=== PATIENT | male | born 1965 | race Caucasian/White ===

== ENCOUNTER 2016-11-10 11:00 | Emergency (ER) | payer MEDICARE, OTHER ==
[~2016-11-10] VITALS: Ht 172.7 cm; Wt 78.0 kg
[~2016-11-10 11:00] MED LIST: ASEN5TAB6 SL
[2016-11-10 11:42] LABS: BASOPHILS % (AUTO) 0.4 % (0.0-2.0); EOSINOPHILS % (AUTO) 0.4 % (1.0-6.0); HEMATOCRIT 49.6 % (41-53); HEMOGLOBIN 16.3 g/dL (13.5-17.5); LYMPHOCYTES # (AUTO) 1.9 K/uL (1.0-4.8); LYMPHOCYTES % (AUTO) 18.3 % (22.0-44.0); MEAN CORPUSCULAR HEMOGLOBIN 31.3 pg (26.0-34.0); MEAN CORPUSCULAR HGB CONC 32.8 G/dL (31.0-37.0); MEAN CORPUSCULAR VOLUME 95 fL (80-100); MONOCYTES % (AUTO) 9.1 % (2.0-9.0); NEUTROPHILS # (AUTO) 7.6 K/uL (1.8-7.7); NEUTROPHILS % (AUTO) 71.8 % (40.0-70.0); PLATELET COUNT (AUTO) 286 K/uL (150-450); RED BLOOD CELL COUNT(AUTO) 5.21 MIL/uL (4.50-5.90); RED CELL DISTRIBUTION WIDTH 14.1 % (11.5-14.5); WHITE BLOOD COUNT (AUTO) 10.6 K/uL (4.5-11.0)
[2016-11-10 11:56] LABS: ANION GAP 13 mmol/L (8-16); CALCIUM, TOTAL 9.5 mg/dL (8.8-10.5); CARBON DIOXIDE 27 mmol/L (22-29); CHLORIDE 103 mmol/L (98-107); CREATININE 0.86 mg/dL (0.60-1.30); GLOMERULAR FILTR. RATE CALC > 60 mL/min (>60); POTASSIUM 3.5 mmol/L (3.5-5.1); SODIUM SERUM 143 mmol/L (136-145); UREA NITROGEN, BLOOD 24 mg/dL (7-18)
[2016-11-10 12:02] LABS: ALANINE AMINOTRANSFERASE 23 U/L (12-78); ALBUMIN 4.5 g/dL (3.4-5.0); ASPARTATE AMINOTRANSFERASE 38 U/L (15-37); BILIRUBIN,TOTAL 1.3 mg/dL (0.1-1.0); TOTAL PROTEIN, SERUM 8.3 g/dL (6.4-8.2)
[2016-11-10] MEDS ORDERED: HALOPERIDOL 5 MG TABLET PO ONE (14:15)
[2016-11-10 14:52] VITALS: BP 122/76
== END 2016-11-10 15:14 | disposition home or self-care (01) ==
LOC: EEVIPCON 11:00 → EMS 11:03
DX: F20.9 Schizophrenia, unspecified (principal); Z88.8 Allergy status to other drugs, medicaments and biological substances
CPT/HCPCS: 36415; 80053; 80307; 85025; 99285; G0480

== ENCOUNTER 2016-12-24 20:45 | Inpatient (IN) | payer OTHER ==
[~2016-12-24] VITALS: Ht 177.8 cm; Wt 75.3 kg
[~2016-12-24 20:45] MED LIST changes: +HALO5 PO
[2016-12-24] MEDS ORDERED: HALOPERIDOL 5 MG TABLET PO PRN (22:15)
[2016-12-24] MEDS ORDERED: DOCUSATE SODIUM 100 MG CAPSULE PO PRN (22:15)
[2016-12-24] MEDS ORDERED: MAGNESIUM HYDROXIDE SUSPENSION 30 ML UDCUP PO PRN (22:15)
[2016-12-24] MEDS: DEXTROSE 5%-0.45% SODIUM CHL 1,000 ML IV SCH (22:42)
[2016-12-24 22:48] VITALS: BP 127/84
[2016-12-24] MEDS: HALOPERIDOL 5 MG TABLET PO SCH (23:00)
[2016-12-25 02:15] VITALS: BP 126/78
[2016-12-25 06:14] VITALS: BP 133/82
[2016-12-25 08:00] VITALS: BP 115/76
[2016-12-25] MEDS: HALOPERIDOL 5 MG TABLET PO SCH ×2 (09:00→21:00)
[2016-12-25 11:00] VITALS: BP 119/73
[2016-12-25] MEDS ORDERED: HYDROCODONE/ACETAMINOPHEN 5-325 MG TABLET PO PRN (15:00)
[2016-12-25] MEDS ORDERED: ZOLPIDEM TARTRATE 5 MG TABLET PO PRN (15:00)
[2016-12-25] MEDS ORDERED: ACETAMINOPHEN 325 MG TABLET PO PRN (15:00)
[2016-12-25] MEDS ORDERED: BISACODYL 10 MG RECTAL RECTAL SUPPOSITORY PR PRN (15:00)
[2016-12-25] MEDS ORDERED: MORPHINE SULFATE 2 MG/ML SYRINGE IVP PRN (15:00)
[2016-12-25] MEDS ORDERED: MAGNESIUM HYDROXIDE SUSPENSION 30 ML UDCUP PO PRN (15:00)
[2016-12-25 16:00] VITALS: BP 99/58
[2016-12-25] MEDS: HEPARIN SODIUM,PORCINE 5,000 UNITS/ML VIAL SQ SCH ×2 (16:00→23:50)
[2016-12-25] MEDS: DOCUSATE SODIUM 100 MG CAPSULE PO SCH (19:46)
[2016-12-25 20:40] VITALS: BP 123/69
[2016-12-25] MEDS: DEXTROSE 5%-0.45% SODIUM CHL 1,000 ML IV SCH (23:24)
[2016-12-26] VITALS: BP 101/70
[2016-12-26 04:37] VITALS: BP 129/71
[2016-12-26 06:47] LABS: ANION GAP 1 mmol/L (8-16); CALCIUM, TOTAL 8.8 mg/dL (8.8-10.5); CARBON DIOXIDE 28 mmol/L (22-29); CHLORIDE 109 mmol/L (98-107); CREATININE 0.85 mg/dL (0.60-1.30); GLOMERULAR FILTR. RATE CALC > 60 mL/min (>60); POTASSIUM 3.8 mmol/L (3.5-5.1); SODIUM SERUM 138 mmol/L (136-145); UREA NITROGEN, BLOOD 12 mg/dL (7-18)
[2016-12-26 08:00] VITALS: BP 107/70
[2016-12-26] MEDS: HEPARIN SODIUM,PORCINE 5,000 UNITS/ML VIAL SQ SCH ×2 (08:24→15:24)
[2016-12-26] MEDS: HALOPERIDOL 5 MG TABLET PO SCH ×2 (08:25→08:36)
[2016-12-26] MEDS: DOCUSATE SODIUM 100 MG CAPSULE PO SCH ×2 (08:25→08:36)
[2016-12-26] MEDS ORDERED: PANTOPRAZOLE SODIUM 40 MG DR TABLET PO SCH (09:00)
[2016-12-26 13:23] VITALS: BP 118/72
[2016-12-26] MEDS: DEXTROSE 5%-0.45% SODIUM CHL 1,000 ML IV SCH (14:02)
[2016-12-26 16:00] VITALS: BP 115/70
== END 2016-12-26 18:36 | DRG 682 ==
LOC: 4E 20:45
PROVIDERS: ADMIT Internal Medicine; ATTEND Internal Medicine
DX: N17.9 Acute kidney failure, unspecified (principal); G93.41 Metabolic encephalopathy; E87.0 Hyperosmolality and hypernatremia; E86.0 Dehydration; H40.9 Unspecified glaucoma; N18.9 Chronic kidney disease, unspecified; Z88.1 Allergy status to other antibiotic agents; Z88.8 Allergy status to other drugs, medicaments and biological substances; Z80.42 Family history of malignant neoplasm of prostate
CPT/HCPCS: 97162; 97530; J1644

== ENCOUNTER 2016-12-26 18:30 | Inpatient (IN) | payer MEDICARE, MEDICAID ==
[~2016-12-26] VITALS: Ht 177.8 cm; Wt 83.6 kg
[~2016-12-26 18:30] MED LIST changes: +ACET-784 PO; +FOLI1 PO; +LOPE2 PO; +LORA2TAB2 PO; +MAG-55 PO; +MOM30 PO; +MULT-29 GT; +OLAN5Z PO; +PROM25 PO; +THIA100 PO; +VIST50 PO; +ZOLP10 PO
[2016-12-26] MEDS ORDERED: HALOPERIDOL 5 MG TABLET PO PRN (19:15)
[2016-12-26] MEDS ORDERED: LORazepam 2 MG TABLET PO PRN (19:15)
[2016-12-26] MEDS: HALOPERIDOL 5 MG TABLET PO SCH (19:22)
[2016-12-26 20:17] VITALS: BP 111/79
[2016-12-27 05:10] VITALS: BP 123/75
[2016-12-27 08:05] VITALS: BP 118/67
[2016-12-27] MEDS: PANTOPRAZOLE SODIUM 40 MG DR TABLET PO SCH (09:00)
[2016-12-27] MEDS: DOCUSATE SODIUM 100 MG CAPSULE PO SCH ×2 (09:00→16:07)
[2016-12-27] MEDS: HALOPERIDOL 5 MG TABLET PO SCH ×2 (09:00→16:07)
[2016-12-27 16:10] VITALS: BP 132/89
[2016-12-28] MEDS: ZOLPIDEM TARTRATE 10 MG TABLET PO PRN ×2 (00:24→20:50)
[2016-12-28 08:02] VITALS: BP 111/72
[2016-12-28] MEDS: DOCUSATE SODIUM 100 MG CAPSULE PO SCH ×2 (08:40→16:21)
[2016-12-28] MEDS: PANTOPRAZOLE SODIUM 40 MG DR TABLET PO SCH (08:40)
[2016-12-28] MEDS: HALOPERIDOL 5 MG TABLET PO SCH ×2 (08:40→16:21)
[2016-12-28 16:10] VITALS: BP 130/80
[2016-12-29 03:05] VITALS: BP 120/71
[2016-12-29 08:15] VITALS: BP 114/70
[2016-12-29] MEDS: PANTOPRAZOLE SODIUM 40 MG DR TABLET PO SCH (09:00)
[2016-12-29] MEDS: HALOPERIDOL 5 MG TABLET PO SCH ×3 (09:00→17:10)
[2016-12-29] MEDS: DOCUSATE SODIUM 100 MG CAPSULE PO SCH ×2 (09:00→17:00)
[2016-12-29] MEDS: IBUPROFEN 600 MG TABLET PO PRN (17:11)
[2016-12-29] MEDS: ZOLPIDEM TARTRATE 10 MG TABLET PO PRN (21:51)
[2016-12-30 00:22] VITALS: BP 101/67
[2016-12-30] MEDS: HALOPERIDOL 5 MG TABLET PO SCH ×2 (09:00→16:05)
[2016-12-30] MEDS: DOCUSATE SODIUM 100 MG CAPSULE PO SCH ×2 (09:00→16:05)
[2016-12-30] MEDS: PANTOPRAZOLE SODIUM 40 MG DR TABLET PO SCH (09:00)
[2016-12-30 10:11] VITALS: BP 121/80
[2016-12-30] MEDS: ZOLPIDEM TARTRATE 10 MG TABLET PO PRN (20:32)
[2016-12-31 01:45] VITALS: BP 113/72
[2016-12-31] MEDS: ZIPRASIDONE HCL 20 MG CAPSULE PO SCH ×2 (06:53→16:32)
[2016-12-31] MEDS: DOCUSATE SODIUM 100 MG CAPSULE PO SCH ×2 (09:00→16:34)
[2016-12-31] MEDS: PANTOPRAZOLE SODIUM 40 MG DR TABLET PO SCH (09:00)
[2016-12-31 09:17] VITALS: BP 138/88
[2016-12-31 16:34] VITALS: BP 113/69
[2017-01-01] MEDS: PANTOPRAZOLE SODIUM 40 MG DR TABLET PO SCH (08:12)
[2017-01-01] MEDS: DOCUSATE SODIUM 100 MG CAPSULE PO SCH ×2 (08:12→17:08)
[2017-01-01] MEDS: ZIPRASIDONE HCL 40 MG CAPSULE PO SCH ×2 (08:12→18:30)
[2017-01-01 08:30] VITALS: BP 119/74
[2017-01-01 18:32] VITALS: BP 110/70
[2017-01-01] MEDS: ZOLPIDEM TARTRATE 10 MG TABLET PO PRN (21:30)
[2017-01-02 07:04] LABS: ANION GAP 8 mmol/L (8-16); CALCIUM, TOTAL 8.9 mg/dL (8.8-10.5); CARBON DIOXIDE 29 mmol/L (22-29); CHLORIDE 105 mmol/L (98-107); CREATININE 0.84 mg/dL (0.60-1.30); GLOMERULAR FILTR. RATE CALC > 60 mL/min (>60); POTASSIUM 4.3 mmol/L (3.5-5.1); SODIUM SERUM 142 mmol/L (136-145); UREA NITROGEN, BLOOD 16 mg/dL (7-18)
[2017-01-02] MEDS: ZIPRASIDONE HCL 40 MG CAPSULE PO SCH ×2 (07:15→17:04)
[2017-01-02 08:00] VITALS: BP 146/86
[2017-01-02] MEDS: DOCUSATE SODIUM 100 MG CAPSULE PO SCH ×2 (09:00→17:00)
[2017-01-02] MEDS: PANTOPRAZOLE SODIUM 40 MG DR TABLET PO SCH (09:00)
[2017-01-02 19:34] VITALS: BP 121/76
[2017-01-03 03:58] VITALS: BP 119/82
[2017-01-03 08:02] VITALS: BP 124/87
[2017-01-03] MEDS: ZIPRASIDONE HCL 40 MG CAPSULE PO SCH ×2 (08:20→17:30)
[2017-01-03] MEDS: DOCUSATE SODIUM 100 MG CAPSULE PO SCH ×2 (08:20→17:00)
[2017-01-03] MEDS: PANTOPRAZOLE SODIUM 40 MG DR TABLET PO SCH (08:20)
[2017-01-03 16:44] VITALS: BP 121/87
[2017-01-03] MEDS: ZOLPIDEM TARTRATE 10 MG TABLET PO PRN (22:49)
[2017-01-04 01:56] VITALS: BP 136/65
[2017-01-04] MEDS: ZIPRASIDONE HCL 40 MG CAPSULE PO SCH ×2 (07:08→16:47)
[2017-01-04] MEDS: PANTOPRAZOLE SODIUM 40 MG DR TABLET PO SCH (08:04)
[2017-01-04] MEDS: DOCUSATE SODIUM 100 MG CAPSULE PO SCH ×2 (08:04→16:47)
[2017-01-04 08:16] VITALS: BP 118/79
[2017-01-04 16:15] VITALS: BP 126/73
[2017-01-05] MEDS: ZIPRASIDONE HCL 40 MG CAPSULE PO SCH ×2 (07:58→16:38)
[2017-01-05] MEDS: PANTOPRAZOLE SODIUM 40 MG DR TABLET PO SCH (07:59)
[2017-01-05] MEDS: DOCUSATE SODIUM 100 MG CAPSULE PO SCH ×2 (07:59→16:37)
[2017-01-05 08:05] VITALS: BP 140/82
[2017-01-05] MEDS ORDERED: ZIPR40CA2 PO (09:51)
[2017-01-05] MEDS ORDERED: PANT40TA25 PO (09:51)
[2017-01-05] MEDS ORDERED: DSS100 PO (09:51)
[2017-01-05 19:01] VITALS: BP 121/64
[2017-01-05] MEDS: ZOLPIDEM TARTRATE 10 MG TABLET PO PRN (23:07)
[2017-01-06] MEDS: ZIPRASIDONE HCL 40 MG CAPSULE PO SCH ×2 (07:16→17:01)
[2017-01-06 08:30] VITALS: BP 134/78
[2017-01-06] MEDS: DOCUSATE SODIUM 100 MG CAPSULE PO SCH ×2 (09:00→17:00)
[2017-01-06] MEDS: PANTOPRAZOLE SODIUM 40 MG DR TABLET PO SCH (09:00)
[2017-01-06 16:34] VITALS: BP 108/79
[2017-01-06] MEDS: ZOLPIDEM TARTRATE 10 MG TABLET PO PRN (22:08)
[2017-01-06] MEDS: HYDROCORTISONE 1% 30 GM OINTMENT TP PRN (22:10)
[2017-01-07 05:08] VITALS: BP 126/86
[2017-01-07] MEDS: HYDROCORTISONE 1% 30 GM OINTMENT TP PRN (05:23)
[2017-01-07] MEDS: ZIPRASIDONE HCL 40 MG CAPSULE PO SCH ×2 (07:26→17:30)
[2017-01-07] MEDS: DOCUSATE SODIUM 100 MG CAPSULE PO SCH ×2 (08:31→17:00)
[2017-01-07] MEDS: PANTOPRAZOLE SODIUM 40 MG DR TABLET PO SCH (08:31)
[2017-01-07 11:03] VITALS: BP 122/79
[2017-01-07 16:22] VITALS: BP 109/80
[2017-01-08] MEDS: ZOLPIDEM TARTRATE 10 MG TABLET PO PRN (01:07)
[2017-01-08] MEDS: PANTOPRAZOLE SODIUM 40 MG DR TABLET PO SCH (08:39)
[2017-01-08] MEDS: DOCUSATE SODIUM 100 MG CAPSULE PO SCH ×2 (08:39→17:00)
[2017-01-08 10:15] VITALS: BP 121/78
[2017-01-08 17:16] VITALS: BP 128/88
[2017-01-08] MEDS: IBUPROFEN 600 MG TABLET PO PRN (19:34)
[2017-01-08] MEDS: ZIPRASIDONE HCL 80 MG CAPSULE PO SCH (20:39)
[2017-01-09 08:58] VITALS: BP 115/84
[2017-01-09] MEDS: PANTOPRAZOLE SODIUM 40 MG DR TABLET PO SCH (09:00)
[2017-01-09] MEDS: DOCUSATE SODIUM 100 MG CAPSULE PO SCH ×2 (09:00→16:58)
[2017-01-09 16:54] VITALS: BP 132/81
[2017-01-09] MEDS: ZIPRASIDONE HCL 80 MG CAPSULE PO SCH ×2 (17:52→20:09)
[2017-01-10 05:00] VITALS: BP 121/82
[2017-01-10] MEDS: PANTOPRAZOLE SODIUM 40 MG DR TABLET PO SCH (09:00)
[2017-01-10] MEDS: DOCUSATE SODIUM 100 MG CAPSULE PO SCH ×2 (09:00→17:00)
[2017-01-10 09:29] VITALS: BP 122/84
[2017-01-10 17:00] VITALS: BP 127/70
[2017-01-10] MEDS: ZIPRASIDONE HCL 80 MG CAPSULE PO SCH (20:15)
[2017-01-11] MEDS: DOCUSATE SODIUM 100 MG CAPSULE PO SCH ×2 (08:31→16:19)
[2017-01-11] MEDS: PANTOPRAZOLE SODIUM 40 MG DR TABLET PO SCH (08:31)
[2017-01-11 09:09] VITALS: BP 113/77
[2017-01-11] MEDS: ZIPRASIDONE HCL 80 MG CAPSULE PO SCH ×2 (16:19→19:55)
[2017-01-11 17:00] VITALS: BP 123/71
[2017-01-11 20:20] VITALS: BP 108/83
[2017-01-11] MEDS: IBUPROFEN 600 MG TABLET PO PRN (20:20)
[2017-01-12] MEDS: DOCUSATE SODIUM 100 MG CAPSULE PO SCH (08:55)
[2017-01-12] MEDS: PANTOPRAZOLE SODIUM 40 MG DR TABLET PO SCH (08:56)
== END 2017-01-12 14:20 | disposition home or self-care (01) | DRG 885 ==
LOC: 3EX 18:30
PROVIDERS: ADMIT Psychiatry & Neurology Psychiatry; ATTEND Psychiatry & Neurology Psychiatry
DX: F20.0 Paranoid schizophrenia (principal); E87.1 Hypo-osmolality and hyponatremia; G35 Multiple sclerosis; Z88.8 Allergy status to other drugs, medicaments and biological substances; E16.2 Hypoglycemia, unspecified

== ENCOUNTER 2017-04-09 10:06 | Inpatient (IN) | payer MEDICARE, MEDICAID ==
[~2017-04-09] VITALS: Ht 175.3 cm; Wt 77.6 kg
[~2017-04-09 10:06] MED LIST changes: -ACET-784 PO; -ASEN5TAB6 SL; +DSS100 PO; -FOLI1 PO; -HALO5 PO; -LOPE2 PO; -LORA2TAB2 PO; -MAG-55 PO; -MOM30 PO; -MULT-29 GT; -OLAN5Z PO; +PANT40TA25 PO; -PROM25 PO; -THIA100 PO; -VIST50 PO; +ZIPR40CA2 PO; -ZOLP10 PO
[2017-04-09] MEDS ORDERED: KETO120S2 TP (10:17)
[2017-04-09] MEDS ORDERED: XALA2.5OS OU (10:17)
[2017-04-09 11:20] LABS: BASOPHILS % (AUTO) 0.2 % (0.0-2.0); EOSINOPHILS % (AUTO) 0.1 % (1.0-6.0); HEMATOCRIT 42.6 % (41-53); HEMOGLOBIN 14.5 g/dL (13.5-17.5); LYMPHOCYTES # (AUTO) 1.1 K/uL (1.0-4.8); LYMPHOCYTES % (AUTO) 11.8 % (22.0-44.0); MEAN CORPUSCULAR HEMOGLOBIN 32.6 pg (26.0-34.0); MEAN CORPUSCULAR HGB CONC 34.1 G/dL (31.0-37.0); MEAN CORPUSCULAR VOLUME 96 fL (80-100); MONOCYTES # (AUTO) 0.5 K/uL (0.1-1.0); MONOCYTES % (AUTO) 4.9 % (2.0-9.0); PLATELET COUNT (AUTO) 258 K/uL (150-450); RED BLOOD CELL COUNT(AUTO) 4.46 MIL/uL (4.50-5.90); RED CELL DISTRIBUTION WIDTH 13.3 % (11.5-14.5); WHITE BLOOD COUNT (AUTO) 9.6 K/uL (4.5-11.0)
[2017-04-09 11:37] LABS: ANION GAP 5 mmol/L (8-16); CALCIUM, TOTAL 8.7 mg/dL (8.8-10.5); CARBON DIOXIDE 29 mmol/L (22-29); CHLORIDE 105 mmol/L (98-107); CREATININE 0.87 mg/dL (0.60-1.30); GLOMERULAR FILTR. RATE CALC > 60 mL/min (>60); SODIUM SERUM 139 mmol/L (136-145); UREA NITROGEN, BLOOD 13 mg/dL (7-18)
[2017-04-09 11:45] LABS: ALANINE AMINOTRANSFERASE 16 U/L (12-78); ALBUMIN 3.9 g/dL (3.4-5.0); ASPARTATE AMINOTRANSFERASE 16 U/L (15-37); BILIRUBIN,TOTAL 0.6 mg/dL (0.1-1.0)
[2017-04-09] MEDS ORDERED: HALOPERIDOL 5 MG TABLET PO PRN (12:15)
[2017-04-09] MEDS ORDERED: LORazepam 2 MG TABLET PO PRN (12:15)
[2017-04-09] MEDS ORDERED: ZOLPIDEM TARTRATE 10 MG TABLET PO PRN (12:15)
[2017-04-09] MEDS ORDERED: MAG HYDROX/AL HYDROX/SIMETH ES 30 ML SUSPENSION UDCUP PO PRN (12:15)
[2017-04-09] MEDS ORDERED: MAGNESIUM HYDROXIDE SUSPENSION 30 ML UDCUP PO PRN (12:15)
[2017-04-09 17:42] VITALS: BP 122/79
[2017-04-09] MEDS ORDERED: INFLUENZA VIRUS VACCINE QVS 2017-18 (3YR+)/PF 60 MCG/0.5 ML SYRINGE IM ONE (18:45)
[2017-04-10 06:51] LABS: CHOL/HDL RATIO 3.9 (4.2-7.3)
[2017-04-10 08:15] VITALS: BP 110/71
[2017-04-10] MEDS: PANTOPRAZOLE SODIUM 40 MG DR TABLET PO SCH (09:00)
[2017-04-10] MEDS: LATANOPROST 0.005% 2.5 ML OPHTHALMIC SOLUTION OU SCH (10:42)
[2017-04-10 16:30] VITALS: BP 108/76
[2017-04-10] MEDS: ZIPRASIDONE HCL 80 MG CAPSULE PO SCH (17:30)
[2017-04-11 00:36] VITALS: BP 114/77
[2017-04-11] MEDS: ACETAMINOPHEN 325 MG TABLET PO PRN (00:36)
[2017-04-11 08:15] VITALS: BP 108/72
[2017-04-11] MEDS: PANTOPRAZOLE SODIUM 40 MG DR TABLET PO SCH ×2 (09:00→09:21)
[2017-04-11] MEDS: LATANOPROST 0.005% 2.5 ML OPHTHALMIC SOLUTION OU SCH (09:28)
[2017-04-11] MEDS: ZIPRASIDONE HCL 80 MG CAPSULE PO SCH (17:30)
[2017-04-12 08:15] VITALS: BP 144/79
[2017-04-12] MEDS: LATANOPROST 0.005% 2.5 ML OPHTHALMIC SOLUTION OU SCH (08:38)
[2017-04-12] MEDS: PANTOPRAZOLE SODIUM 40 MG DR TABLET PO SCH (08:38)
[2017-04-12] MEDS: ZIPRASIDONE HCL 80 MG CAPSULE PO SCH (16:17)
[2017-04-12 16:30] VITALS: BP 129/53
[2017-04-13 00:30] VITALS: BP 118/74
[2017-04-13 08:30] VITALS: BP 131/87
[2017-04-13] MEDS: PANTOPRAZOLE SODIUM 40 MG DR TABLET PO SCH (09:00)
[2017-04-13] MEDS: LATANOPROST 0.005% 2.5 ML OPHTHALMIC SOLUTION OU SCH (09:00)
[2017-04-13] MEDS: PROPRANOLOL HCL 10 MG TABLET PO SCH (17:00)
[2017-04-13] MEDS: ZIPRASIDONE HCL 80 MG CAPSULE PO SCH (17:30)
[2017-04-14 05:05] VITALS: BP 117/74
[2017-04-14 08:22] VITALS: BP 118/78
[2017-04-14] MEDS: PANTOPRAZOLE SODIUM 40 MG DR TABLET PO SCH (09:00)
[2017-04-14] MEDS: PROPRANOLOL HCL 10 MG TABLET PO SCH ×2 (09:00→16:33)
[2017-04-14] MEDS: LATANOPROST 0.005% 2.5 ML OPHTHALMIC SOLUTION OU SCH (09:19)
[2017-04-14 16:27] VITALS: BP 119/81
[2017-04-14] MEDS: ZIPRASIDONE HCL 80 MG CAPSULE PO SCH (16:34)
[2017-04-15 08:30] VITALS: BP 122/80
[2017-04-15] MEDS: LATANOPROST 0.005% 2.5 ML OPHTHALMIC SOLUTION OU SCH (09:00)
[2017-04-15] MEDS: PANTOPRAZOLE SODIUM 40 MG DR TABLET PO SCH (09:00)
[2017-04-15] MEDS: PROPRANOLOL HCL 10 MG TABLET PO SCH ×2 (09:00→17:00)
[2017-04-15 16:15] VITALS: BP 147/96
[2017-04-15] MEDS: ZIPRASIDONE HCL 80 MG CAPSULE PO SCH (17:30)
[2017-04-16 08:40] VITALS: BP 133/89
[2017-04-16] MEDS: PROPRANOLOL HCL 10 MG TABLET PO SCH ×3 (09:00→17:00)
[2017-04-16] MEDS: PANTOPRAZOLE SODIUM 40 MG DR TABLET PO SCH (10:02)
[2017-04-16] MEDS: LATANOPROST 0.005% 2.5 ML OPHTHALMIC SOLUTION OU SCH ×3 (10:02→21:00)
[2017-04-16] MEDS ORDERED: ZIPRASIDONE MESYLATE 20 MG/VIAL IM PRN ×3 (14:45→18:00)
[2017-04-16] MEDS: ZIPRASIDONE HCL 80 MG CAPSULE PO SCH (17:19)
[2017-04-17 01:43] VITALS: BP 116/87
[2017-04-17 08:24] VITALS: BP 105/79
[2017-04-17] MEDS: PANTOPRAZOLE SODIUM 40 MG DR TABLET PO SCH (09:00)
[2017-04-17] MEDS: PROPRANOLOL HCL 10 MG TABLET PO SCH ×3 (09:00→17:45)
[2017-04-17] MEDS ORDERED: ZIPR80CA2 PO (11:16)
[2017-04-17 16:31] VITALS: BP 122/81
[2017-04-17] MEDS: ZIPRASIDONE HCL 80 MG CAPSULE PO SCH ×2 (17:30→17:45)
[2017-04-17] MEDS: LATANOPROST 0.005% 2.5 ML OPHTHALMIC SOLUTION OU SCH (21:00)
[2017-04-17] MEDS: ZIPRASIDONE MESYLATE 20 MG/VIAL IM PRN (23:27)
[2017-04-18 03:27] VITALS: BP 128/90
[2017-04-18] MEDS: ZIPRASIDONE HCL 80 MG CAPSULE PO SCH ×2 (07:02→16:59)
[2017-04-18 08:15] VITALS: BP 129/81
[2017-04-18] MEDS: PROPRANOLOL HCL 10 MG TABLET PO SCH ×2 (09:00→16:58)
[2017-04-18] MEDS: PANTOPRAZOLE SODIUM 40 MG DR TABLET PO SCH (09:00)
[2017-04-18 09:08] VITALS: BP 129/81
[2017-04-18] MEDS: ACETAMINOPHEN 325 MG TABLET PO PRN (09:17)
[2017-04-18] MEDS: ZIPRASIDONE MESYLATE 20 MG/VIAL IM PRN (18:08)
[2017-04-18] MEDS: LATANOPROST 0.005% 2.5 ML OPHTHALMIC SOLUTION OU SCH (20:20)
[2017-04-19 02:11] VITALS: BP 133/95
[2017-04-19] MEDS: ZIPRASIDONE HCL 80 MG CAPSULE PO SCH ×2 (06:38→17:35)
[2017-04-19 08:15] VITALS: BP 130/90
[2017-04-19] MEDS: PROPRANOLOL HCL 10 MG TABLET PO SCH ×2 (09:00→17:00)
[2017-04-19] MEDS: PANTOPRAZOLE SODIUM 40 MG DR TABLET PO SCH (09:00)
[2017-04-19 19:23] VITALS: BP 125/87
[2017-04-19] MEDS: LATANOPROST 0.005% 2.5 ML OPHTHALMIC SOLUTION OU SCH (20:05)
[2017-04-20 05:21] VITALS: BP 138/88
[2017-04-20] MEDS: ZIPRASIDONE HCL 80 MG CAPSULE PO SCH ×2 (07:05→18:52)
[2017-04-20] MEDS: PROPRANOLOL HCL 10 MG TABLET PO SCH ×2 (09:00→17:55)
[2017-04-20] MEDS: PANTOPRAZOLE SODIUM 40 MG DR TABLET PO SCH (09:00)
[2017-04-20 09:31] VITALS: BP 122/76
[2017-04-20 17:29] VITALS: BP 135/99
[2017-04-20] MEDS: LATANOPROST 0.005% 2.5 ML OPHTHALMIC SOLUTION OU SCH (21:00)
[2017-04-21 01:41] VITALS: BP 136/92
[2017-04-21] MEDS: ZIPRASIDONE HCL 80 MG CAPSULE PO SCH ×2 (06:39→18:15)
[2017-04-21 08:59] VITALS: BP 116/95
[2017-04-21] MEDS: PANTOPRAZOLE SODIUM 40 MG DR TABLET PO SCH (09:00)
[2017-04-21] MEDS: PROPRANOLOL HCL 10 MG TABLET PO SCH ×2 (09:00→17:00)
[2017-04-21] MEDS: LATANOPROST 0.005% 2.5 ML OPHTHALMIC SOLUTION OU SCH (21:00)
[2017-04-21 22:54] VITALS: BP 121/93
[2017-04-22 02:36] VITALS: BP 139/80
[2017-04-22] MEDS: ZIPRASIDONE HCL 80 MG CAPSULE PO SCH ×2 (06:33→17:51)
[2017-04-22] MEDS: PROPRANOLOL HCL 10 MG TABLET PO SCH ×2 (09:00→17:00)
[2017-04-22] MEDS: PANTOPRAZOLE SODIUM 40 MG DR TABLET PO SCH (09:00)
[2017-04-22] MEDS: DIVALPROEX SODIUM 500 MG ER TABLET PO SCH (17:15)
[2017-04-22 19:45] VITALS: BP 121/79
[2017-04-22] MEDS: LATANOPROST 0.005% 2.5 ML OPHTHALMIC SOLUTION OU SCH (21:00)
[2017-04-23 03:25] VITALS: BP 121/82
[2017-04-23] MEDS: ZIPRASIDONE HCL 80 MG CAPSULE PO SCH ×2 (07:14→17:47)
[2017-04-23] MEDS: DIVALPROEX SODIUM 500 MG ER TABLET PO SCH ×2 (09:00→17:00)
[2017-04-23] MEDS: PANTOPRAZOLE SODIUM 40 MG DR TABLET PO SCH (09:00)
[2017-04-23] MEDS: PROPRANOLOL HCL 10 MG TABLET PO SCH ×2 (09:00→17:00)
[2017-04-23] MEDS: LATANOPROST 0.005% 2.5 ML OPHTHALMIC SOLUTION OU SCH (20:03)
[2017-04-24 02:13] VITALS: BP 132/92
[2017-04-24] MEDS: ZIPRASIDONE HCL 80 MG CAPSULE PO SCH (06:46)
[2017-04-24] MEDS: DIVALPROEX SODIUM 500 MG ER TABLET PO SCH (08:51)
[2017-04-24] MEDS: PANTOPRAZOLE SODIUM 40 MG DR TABLET PO SCH (08:51)
[2017-04-24] MEDS: PROPRANOLOL HCL 10 MG TABLET PO SCH (08:51)
[2017-04-24 08:58] VITALS: BP 123/82
[2017-04-24] MEDS ORDERED: DIVA500T52 PO (12:36)
[2017-04-24] MEDS ORDERED: PROP10TA73 PO (12:36)
== END 2017-04-24 14:00 | disposition home or self-care (01) | DRG 885 ==
LOC: EEVIPCON 10:06 → EMS 10:09 → 3EI 16:18
PROVIDERS: ADMIT Psychiatry & Neurology Psychiatry; ATTEND Psychiatry & Neurology Psychiatry
DX: F20.0 Paranoid schizophrenia (principal); G35 Multiple sclerosis; F32.9 Major depressive disorder, single episode, unspecified; K21.9 Gastro-esophageal reflux disease without esophagitis; F19.10 Other psychoactive substance abuse, uncomplicated; K59.00 Constipation, unspecified; F10.10 Alcohol abuse, uncomplicated; H40.9 Unspecified glaucoma; Z91.14 Patient's other noncompliance with medication regimen; Z88.8 Allergy status to other drugs, medicaments and biological substances; Z79.899 Other long term (current) drug therapy; Z71.6 Tobacco abuse counseling; Z71.41 Alcohol abuse counseling and surveillance of alcoholic; Z71.51 Drug abuse counseling and surveillance of drug abuser; Z28.21 Immunization not carried out because of patient refusal
CPT/HCPCS: 99285; G0480; J3486

== ENCOUNTER 2017-04-25 18:20 | Emergency (ER) | payer OTHER, MEDICAID ==
[~2017-04-25] VITALS: Ht 175.3 cm; Wt 79.5 kg
[~2017-04-25 18:20] MED LIST changes: +DIVA500T52 PO; -DSS100 PO; +PROP10TA73 PO; +XALA2.5OS OU; -ZIPR40CA2 PO; +ZIPR80CA2 PO
[2017-04-25 18:46] VITALS: BP 131/92
== END 2017-04-25 21:00 | disposition left against medical advice (07) ==
LOC: EMS 18:21
DX: R45.851 Suicidal ideations (principal); F20.0 Paranoid schizophrenia; I10 Essential (primary) hypertension; F32.9 Major depressive disorder, single episode, unspecified; H40.9 Unspecified glaucoma; Z59.0 Homelessness
CPT/HCPCS: 99284

== ENCOUNTER 2017-04-25 23:22 | Emergency (ER) | payer OTHER, MEDICAID ==
[~2017-04-25] VITALS: Ht 175.3 cm; Wt 80.9 kg
[2017-04-26 05:00] VITALS: BP 121/85
== END 2017-04-26 05:27 | disposition home or self-care (01) ==
LOC: EMS 23:23
DX: F41.9 Anxiety disorder, unspecified (principal); F20.9 Schizophrenia, unspecified; F32.9 Major depressive disorder, single episode, unspecified; Z59.0 Homelessness; Z88.6 Allergy status to analgesic agent; Z88.8 Allergy status to other drugs, medicaments and biological substances
CPT/HCPCS: 36415; 99285; G0480

== ENCOUNTER 2017-04-28 16:31 | Emergency (ER) | payer OTHER ==
[~2017-04-28] VITALS: Ht 175.3 cm; Wt 79.5 kg
[2017-04-28] MEDS ORDERED: ACETAMINOPHEN 325 MG TABLET PO ONE (18:30)
[2017-04-28 18:46] VITALS: BP 118/70
== END 2017-04-28 20:36 | disposition home or self-care (01) ==
LOC: EMS 16:33
DX: F20.9 Schizophrenia, unspecified (principal); F32.9 Major depressive disorder, single episode, unspecified
CPT/HCPCS: 99285

== ENCOUNTER 2017-05-22 00:02 | Emergency (ER) | payer OTHER ==
[~2017-05-22] VITALS: Ht 175.3 cm; Wt 81.8 kg
[2017-05-22] MEDS ORDERED: LIDOCAINE HCL 1% 10 ML VIAL INJ ONE (01:00)
[2017-05-22 01:18] VITALS: BP 126/89
[2017-05-22] MEDS ORDERED: ACETAMINOPHEN 325 MG TABLET PO ONE (02:00)
== END 2017-05-22 02:10 | disposition home or self-care (01) ==
LOC: EMS 00:03
DX: S01.81XA Laceration without foreign body of other part of head, initial encounter (principal); Z88.5 Allergy status to narcotic agent; Z88.8 Allergy status to other drugs, medicaments and biological substances; Y04.0XXA Assault by unarmed brawl or fight, initial encounter; Y93.89 Activity, other specified; Y92.89 Other specified places as the place of occurrence of the external cause; Y99.8 Other external cause status
CPT/HCPCS: 12013; 99283; J3490